=== PATIENT | female | born 1975 | race Two or more races ===

== ENCOUNTER 2019-11-01 16:55 | Inpatient (IN) | payer BC ==
[~2019-11-01] VITALS: Ht 157.5 cm; Wt 98.0 kg
--- NOTE | 2019-11-01 09:20 | NUR ---
BEAM SAW OPERATOR ADMISSION NOTES ADMITTED PT FROM ER WITH CC OF SOB AND WHEEZING, PT IS A/O X4, ON O2 VIA NC@2-3L, O2 SAT >92%, SAFELY TRANSFER FROM [facility] TO BED, V/S CHECKED BP-137/74 HR 90 RR 26 TEMP 97.8 NO SOB OR PAIN NOTED PT IS VERBAL AND CONVERSING, HEAD TO TOE ASSESSMENT DONE, SKIN IS INTACT, WHEEZING OF ALL LOBES NOTED, PT CAN AMBULATE TO BATHROOM, PUT TO TELE MONITOR WITH READING SR 90'S, ADMISSION ASSESSMENT DONE, BED PLACE ON LOWEST POSITION, SIDERAILS UP X 2 CALL LIGHT WITHIN REACH, SANDWICH GIVEN PER PT REQUEST, WILL CONT. TO MONITOR Addendum: 11/02/19 at 0055 by SHAINA HORTON RN WRONG TIME
--- NOTE | 2019-11-01 17:05 | NUR ---
BIBMOTHER, C/O SOB AND WHEEZING X 4 DAYS, NO RELIEF WITH PREDNISONE AND INHALER. ON 02 @ 2LPM VIA NC, NOTED WHEEZING. CONNECTED TO THE MONITOR AND PULSE OX, KEPT COMFORTABLE, WILL CONTINUE TO MONITOR ACCORDINGLY.
[2019-11-01] MEDS ORDERED: ALBUTEROL FS 2.5 MG/3 ML VIAL.NEB ONE ×2 (17:10→18:00)
[2019-11-01] MEDS ORDERED: IPRATROPIUM NEB FS 0.5 MG/2.5 ML AMPUL.NEB ONE (17:10)
[2019-11-01] MEDS ORDERED: ALBUTEROL FS 2.5 MG/3 ML VIAL.NEB NEB ONE (17:30)
[2019-11-01] MEDS ORDERED: IPRATROPIUM NEB FS 0.5 MG/2.5 ML AMPUL.NEB NEB ONE (17:30)
[2019-11-01] MEDS ORDERED: Magnesium 1GM/D5W 100ML PREMIX 200 ML IV ONE ×2 (17:35→17:39)
[2019-11-01] MEDS ORDERED: methylPREDNISolone SOD SUCC 125 MG/2ML VIAL ONE (17:39)
[2019-11-01] MEDS ORDERED: ALBUTEROL FS 2.5 MG/3 ML VIAL.NEB CONTNEB ONE ×2 (18:00)
[2019-11-01] MEDS ORDERED: methylPREDNISolone SOD SUCC 125 MG/2ML VIAL IV ONE (18:00)
--- NOTE | 2019-11-01 19:16 | NUR ---
CALLED [facility], PAGED SCAR CASTRO
--- NOTE | 2019-11-01 19:18 | NUR ---
PT RECEIVED FROM TORI BARRAGAN FOR SON. PT IN BED AAOX4. CURRENTLY RECEIVING BREATHING TX. NOT IN DISTRESS
[2019-11-01 19:41] LABS: BASOPHILS % (AUTO) 0.4 % (0.0-2.0); EOSINOPHILS % (AUTO) 0.7 % (0.0-6.0); HEMATOCRIT 36 % (33-45); HEMOGLOBIN 11.6 g/dL (11.5-14.8); LYMPHOCYTES # (AUTO) 3.1 /CMM (0.8-4.8); LYMPHOCYTES % (AUTO) 40.1 % (20.0-44.0); MEAN CORPUSCULAR HGB CONC 32 g/dl (31.0-36.0); MEAN CORPUSCULAR VOLUME 78 fL (82-100); MONOCYTES # (AUTO) 0.6 /CMM (0.1-1.30); MONOCYTES % (AUTO) 8.1 % (2.0-12.0); NEUTROPHILS % (AUTO) 50.7 % (43.0-81.0); PLATELET COUNT (AUTO) 424 /CMM (150-450); RED BLOOD CELL COUNT(AUTO) 4.61 MIL/uL (4.0-5.2); WHITE BLOOD COUNT (AUTO) 7.8 K/uL (4.3-11.0)
[2019-11-01 19:50] LABS: CALCIUM, SERUM 8.6 mg/dL (8.5-10.1); CREATININE 0.7 mg/dL (0.6-1.3); POTASSIUM 3.1 mmol/L (3.5-5.1)
[2019-11-01] MEDS ORDERED: IV NS 0.9% 1,000 ML BAG IV ONE (20:00)
[2019-11-01 20:02] LABS: ALBUMIN 3.4 g/dL (3.4-5.0); BILIRUBIN,TOTAL 0.1 mg/dL (0.2-1.0); TOTAL PROTEIN, SERUM 7.4 g/dL (6.4-8.2)
[2019-11-01] MEDS ORDERED: MAG HYDROX/AL HYDROX/SIMETH 30 ML UDC PO PRN (21:00)
[2019-11-01] MEDS ORDERED: IPRATROPIUM NEB FS 0.5 MG/2.5 ML AMPUL.NEB NEB PRN (21:00)
[2019-11-01] MEDS ORDERED: HYDROCODONE/APAP 5/325MG 1 EACH TABLET PO PRN (21:00)
[2019-11-01] MEDS ORDERED: ZOLPIDEM TARTRATE 5 MG TABLET PO PRN (21:00)
[2019-11-01] MEDS ORDERED: POTASSIUM CHLORIDE 20 MEQ TAB.PRT.SR PO ONE (21:00)
[2019-11-01] MEDS ORDERED: Z GUARD REMEDY 2 OZ OINT TP PRN (21:00)
[2019-11-01] MEDS ORDERED: MAGNESIUM HYDROXIDE 30 ML UDC PO PRN (21:00)
--- NOTE | 2019-11-01 21:06 | NUR ---
REPORT GIVEN TO TORI MERRITT FOR SON
--- NOTE | 2019-11-01 21:15 | NUR ---
PT TRANSPORTED TO UNIT ON [facility]URNEY W/ EMT AND RN AT BEDSIDE W/ ACLS PROTOCOL. NAD NOTED DURING TRANSPORT. PT AMBULATED FROM GURNEY TO BED W/O ASSIT ON STEAD GAIT
[2019-11-01 21:17] VITALS: BP 137/74
[2019-11-01 21:18] VITALS: BP 137/74
--- NOTE | 2019-11-01 21:20 | NUR ---
TRAIN GATE ATTENDANT ADMISSION NOTES ADMITTED PT FROM ER WITH CC OF SOB AND WHEEZING, PT IS A/O X4, ON O2 VIA NC@2-3L, O2 SAT >92%, SAFELY TRANSFER FROM [facility] TO BED, V/S CHECKED BP-137/74 HR 90 RR 26 TEMP 97.8 NO SOB OR PAIN NOTED PT IS VERBAL AND CONVERSING, HEAD TO TOE ASSESSMENT DONE, SKIN IS INTACT, WHEEZING OF ALL LOBES NOTED, PT CAN AMBULATE TO BATHROOM, PUT TO TELE MONITOR WITH READING SR 90'S, ADMISSION ASSESSMENT DONE, BED PLACE ON LOWEST POSITION, SIDERAILS UP X 2 CALL LIGHT WITHIN REACH, SANDWICH GIVEN PER PT REQUEST, WILL CONT. TO MONITOR
[2019-11-01] MEDS: ALBUTEROL FS 2.5 MG/0.5 ML VIAL.NEB NEB SCH (23:30)
[2019-11-02] VITALS (7 sets, daily range): BP systolic 143–160; BP diastolic 75–97
[2019-11-02] MEDS: ALBUTEROL FS 2.5 MG/0.5 ML VIAL.NEB NEB SCH ×6 (03:30→23:23)
[2019-11-02] MEDS: methylPREDNISolone SOD SUCC 125 MG/2ML VIAL IV SCH ×3 (05:31→21:43)
--- NOTE | 2019-11-02 07:36 | NUR ---
RN RENATA CLOSING NOTES PT ON STABLE CONDITION NO SIGN AND SYMPTOMS OF SOB,ON 02 @ 2L VIA NC O2 SAT >92% NO PAIN NOTED,ON TELE MONITOR CURRENT READING SR 90'S PT IS AWAKE ABLE TO GO TO BATHROOM WITHOUT SOB, ALL NEEDS ATTENDED, SAFETY MEASURE MAINTAINED, BED ON LOWEST POSITION, CALL LIGHT WITHIN REACH ENDORSED TO AM SHIFT RN
[2019-11-02 07:37] LABS: BASOPHILS % (AUTO) 0.1 % (0.0-2.0); HEMATOCRIT 35 % (33-45); HEMOGLOBIN 11.6 g/dL (11.5-14.8); LYMPHOCYTES # (AUTO) 1.1 /CMM (0.8-4.8); LYMPHOCYTES % (AUTO) 11.8 % (20.0-44.0); MEAN CORPUSCULAR HGB CONC 33 g/dl (31.0-36.0); MEAN CORPUSCULAR VOLUME 76 fL (82-100); MONOCYTES # (AUTO) 0.3 /CMM (0.1-1.30); MONOCYTES % (AUTO) 2.8 % (2.0-12.0); NEUTROPHILS # (AUTO) 7.8 /CMM (1.8-8.9); NEUTROPHILS % (AUTO) 85.3 % (43.0-81.0); PLATELET COUNT (AUTO) 418 /CMM (150-450); RED BLOOD CELL COUNT(AUTO) 4.61 MIL/uL (4.0-5.2); WHITE BLOOD COUNT (AUTO) 9.1 K/uL (4.3-11.0)
[2019-11-02 08:08] LABS: CALCIUM, SERUM 7.9 mg/dL (8.5-10.1); CREATININE 0.6 mg/dL (0.6-1.3); MAGNESIUM 2.1 mg/dL (1.8-2.4); PHOSPHORUS 2.6 mg/dL (2.5-4.9); POTASSIUM 4.4 mmol/L (3.5-5.1)
[2019-11-02 08:15] LABS: THYROID STIMULATING HORMONE 0.442 uIU/mL (0.358-3.74)
[2019-11-02] MEDS ORDERED: ALBU18HF2 IH (08:19)
--- NOTE | 2019-11-02 09:00 | NUR ---
RN RENATA - OPENING PATIENT A/O X4 PATIENT IS ALERT AND ORIENTED. PATIENT IS ON 02 VIA NC @ 2 L. O2 PATIENT IS TOLERATING WELL. PATIENT SHOWS NO SIGNS OF SOB. NO ACUTE RESPIRATORY DISTRESS SKIN IS IN TACT. PATIENT ON EXTERNAL MONITOR SR 90'S PATIENT IS COOPERATIVE WITH CARE AND TREATMENT PLAN. PATIENTS GOAL IS TO FEEL BETTER AND LEAVE THE HOSPITAL BUT ONLY ONCE THE DOCTOR FEELS COMFORTABLE WITH GOING HOME BED LOCKED AND LOWEST POSITION CALL LIGHT WITH IN REACH ALL SAFETY MEASURE IMPLEMENTED PER HOSPITAL POLICY
[2019-11-02] MEDS: PANTOPRAZOLE 40 MG TABLET.DR PO SCH (12:35)
[2019-11-02] MEDS ORDERED: GUAIFENESIN/CODEINE 10 ML UDC PO PRN (15:00)
[2019-11-02] MEDS: ONDANSETRON HCL/PF 4 MG/2 ML VIAL IVP PRN (17:05)
--- NOTE | 2019-11-02 18:36 | NUR ---
RN RENATA - CLOSING PATIENT A/O 4 PATIENT CURRENTLY NO CHANGE IN CONDITION. NO SOB. NO PAIN . NO ACUTE RESPIRATORY DISTRESS .BED LOCKED AND LOWEST POSITION CALL LIGHT WITH IN REACH. FAMILY AT BEDSIDE.
--- NOTE | 2019-11-02 19:30 | NUR ---
RN RENATA OPENING NOTES RECEIVED PATIENT RESTING COMFORTABLY IN BED. NO ACUTE DISTRESS NOTED. PT IS A/O X4, ON 2L O2 VIA NC, TOLERATING WELL, SATURATING @ 98%. ON TELE MONITOR WITH SINUS RHYTHM NOTED, HR @ 70BPM. NO COMPLAINS OF NAUSEA OR VOMITING AT THE MOMENT. SKIN IS INTACT, PT CLEAN AND DRY. MOTIVATED TO SELF CARE. R AC IV #22 ON SL, INTACT, PATENT AND FLUSHED WELL. NO S/S OF INFECTION NOTED. PATIENT SAFETY IS MAINTAINED, CALL LIGHT WITHIN REACH, WILL CONTINUE TO MONITOR CLOSELY.
--- NOTE | 2019-11-03 | NUR ---
RN RENATA NOTES PATIENT IS RESTING COMFORTABLY IN BED, REFUSED VITAL SIGNS BECAUSE SHE IS TIRED AND WANTS TO REST. PT DOES NOT SEEM TO BE IN ACUTE DISTRESS, COMFORTABLE. SAFETY MAINTAINED, CALL LIGHT WITHIN REACH, WILL MONITOR CLOSELY.
[2019-11-03] MEDS: ALBUTEROL FS 2.5 MG/0.5 ML VIAL.NEB NEB SCH ×6 (03:30→23:27)
[2019-11-03 04:00] VITALS: BP 138/80
[2019-11-03 04:45] VITALS: BP 152/79
[2019-11-03] MEDS: methylPREDNISolone SOD SUCC 125 MG/2ML VIAL IV SCH ×3 (05:03→21:37)
[2019-11-03] MEDS: ACETAMINOPHEN 325 MG TABLET PO PRN ×2 (05:13→12:29)
--- NOTE | 2019-11-03 07:13 | NUR ---
RENATA RNCLOSING NOTES PATIENT AWAKE IN BED, VERBALLY RESPONSICE, NI SIGNS OF DISRESS NOTED. NO ACUTE CHANGES TO PATIENT CONDITION DURING MY SHIFT. ALL PT NEEDS MET. NO COMPLAINS OF CHEST PAIN OR SOB AT THIS TIME. PT ON 2L O2 VIA NC, SATURATING WELL @98%. RECEIVED BREATHING TREATMENT 2 HOURS AGO FROM RT. PATIENT WAS MED COMPLIANT, ALL SCHEDULED MEDICATIONS GIVEN ON TIME. TYLENOL WAS GIVEN AT 0515 FOR HEADACHE, MEDICATION WAS EFFECTIVE. PT ON TELEL MONITOR WITH SINUS RHYTHM, HR IN THE 70S. SAFETY MAINTAINED, CALL LIGHT WITHIN REACH, ENDORSED TO FULL STACK PHP DEVELOPER NURSE TO CONTINUE CARE.
[2019-11-03] MEDS: PANTOPRAZOLE 40 MG TABLET.DR PO SCH (07:54)
--- NOTE | 2019-11-03 07:57 | NUR ---
RN OPENING NOTES RECEIVED PATIENT SLEEPING IN BED COMFORTABLY, EASILY AROUSED. PT IS AOX4, VERBAL, AND AMBULATORY. SHE IS ON RA, TOLERATING WELL, DENIES HAVING SOB OR RESP DISTRESS AT THIS TIME. WHEEZING HEARD UPON AUSCULTATION OF THE LUNGS BILATERALLY. TELE MONITOR SHOWING NSR. SKIN IS INTACT, NO EDEMA PRESENT THROUGHOUT. IV SITE ON RAC 22 G IS PATENT AND INTACT. SAFETY MEASURES HAVE BEEN IMPLEMENTED, CALL LIGHT IS WITHIN REACH, BED IS IN LOWEST AND LOCKED POSITION, SIDE RAILS UP X2, WILL CONTINUE TO MONITOR FOR ANY CHANGES.
[2019-11-03 08:00] VITALS: BP 158/88
[2019-11-03 12:00] VITALS: BP 158/89
[2019-11-03] MEDS: ONDANSETRON HCL/PF 4 MG/2 ML VIAL IVP PRN (12:29)
[2019-11-03] MEDS: IPRATROPIUM NEB FS 0.5 MG/2.5 ML AMPUL.NEB NEB SCH ×4 (15:00→23:27)
[2019-11-03 16:00] VITALS: BP 157/76
--- NOTE | 2019-11-03 19:56 | NUR ---
RN NOTES PT IS RESTING COMFORTABLY IN BED AT THIS TIME. NO S.SX OF RESP DISTRESS OR SOB AT THIS TIME, TOLERATING NC WELL. PT NEEDS HAVE BEEN MET, VITAL SIGNS ARE STABLE, NO ACUTE CHANGES OCCURRED THROUGHOUT THE SHIFT. SAFETY MEASURES HAVE BEEN IMPLEMENTED, CALL LIGHT IS WITHIN REACH, BED IS IN LOWEST AND LOCKED POSITION, SIDE RAILS UP X2M, WILL CONTINUE TO MONITOR FOR ANY CHANGES.
--- NOTE | 2019-11-03 19:59 | NUR ---
PT HAS BEEN ENDORSED TO NIGHTSHIFT RN FOR SON
[2019-11-03 20:00] VITALS: BP 155/88
[2019-11-04] VITALS: BP 155/92
[2019-11-04] MEDS: IPRATROPIUM NEB FS 0.5 MG/2.5 ML AMPUL.NEB NEB SCH ×3 (03:41→11:29)
[2019-11-04] MEDS: ALBUTEROL FS 2.5 MG/0.5 ML VIAL.NEB NEB SCH ×3 (03:41→11:29)
[2019-11-04 04:00] VITALS: BP 151/99
[2019-11-04] MEDS: methylPREDNISolone SOD SUCC 125 MG/2ML VIAL IV SCH (05:19)
--- NOTE | 2019-11-04 05:52 | NUR ---
RN NOTE PT REFUSED SOLU-MEDROL. EXPLAINED RISKS AND BENEFITS AND PT STILL REFUSED. PT STATES SHE GETS A HEADACHE WHEN SHE RECEIVES MEDICATION. WILL MONITOR.
[2019-11-04 07:30] VITALS: BP 164/86
[2019-11-04] MEDS: PANTOPRAZOLE 40 MG TABLET.DR PO SCH (07:59)
[2019-11-04 08:00] VITALS: BP 164/80
--- NOTE | 2019-11-04 08:17 | NUR ---
RN OPENING NOTES RECEIVED PATIENT SLEEPING IN BED, EASILY AROUSED. SHE IS AOX4, VERBAL, AND AMBULATORY. SHE IS ON RA, TOLERATING WELL, NO SOB OR RESP DISTRESS NOTED. TELE MONITOR SHOWING ST. SKIN IS INTACT, LUNGS SOUND CLEAR BILATERALLY, SHE IS ON REGULAR DIET. IV SITE ON RHAND 22 G SL IS PATENT AND INTACT. SAFETY MEASURES HAVE BEEN IMPLEMENTED, CALL LIGHT IS WITHIN REACH, BED IS IN LOWEST AND LOCKED POSITION, SIDE RAILS UP X2, WILL CONTINUE TO MONITOR FOR OTHER CHANGES.
[2019-11-04 12:00] VITALS: BP 117/56
[2019-11-04] MEDS ORDERED: BUDE10.22 INH (13:51)
[2019-11-04] MEDS ORDERED: METH4TAB3 PO (13:51)
--- NOTE | 2019-11-04 14:07 | NUR ---
CLIENT SERVICE AND CONSULTING MANAGER NOTE PATIENT DISCHARGE FROM THE HOSPITAL ORDERED IN STABLE CONDITION. SKIN INTACT WITH NO WOUNDS NOTED. VITAL SIGNS WNL. NO SOB NOTED. WALKED OUT OF UNIT WITH MOTHER. IV REMOVED. PRESCRIPTION & DISCHARGED INSTRUCTIONS PROVIDED.
== END 2019-11-04 14:30 | disposition home or self-care (01) | DRG 202 ==
LOC: ER 17:01 → TELE1 20:41 → TELE-TD 11-02 01:46 → TELE1 11-03 10:18
PROVIDERS: ADMIT Student in an Organized Health Care Education/Training Program; ATTEND Registered Nurse
DX: J45.902 Unspecified asthma with status asthmaticus (principal); J96.01 Acute respiratory failure with hypoxia; Z68.41 Body mass index [BMI] 40.0-44.9, adult; J06.9 Acute upper respiratory infection, unspecified; E87.6 Hypokalemia; E66.01 Morbid (severe) obesity due to excess calories; I95.9 Hypotension, unspecified; R73.03 Prediabetes
CPT/HCPCS: 36415; 70220-TC; 71045-TC; 80048-TC; 80061-TC; 80076-TC; 83735-TC; 84100-TC; 84443-TC; 85025-TC; 87081-TC; G0378; J2405; J2930; J3475; J7030